=== PATIENT | female | born 1995 | race Caucasian/White ===

== ENCOUNTER 2017-05-27 00:06 | Emergency (ER) | payer OTHER ==
--- NOTE | ~2017-05-27 | CR229 ---
[facility] A Service of [facility] & [facility] RADIOLOGY TEXT RESULTS PATIENT: SLAVA NEGRON LOCATION: [facility] : 97 UNIT #: [id number] AGE: [address]: Marvin North MD SEX: F ORDER DR: [id number] [facility] [address] [place], [place] [address] [id number] E MR#: [id number] Acc #: [id number] NAME: SLAVA NEGRON : 1995 SEX: F STUDY DATE/TIME: 05/27/2017 1:05 UNIT: [facility] ROOM: STUDY DESCRIPTION: CR Shoulder Min 2 View Lt Attending Physician: Marvin North M.D. Ordering Physician: Marvin North M.D. Primary Care Physician: Primary Care Physician No MEDICAL IMAGING REPORT This report is preliminary unless electronic signature is present EXAM Left shoulder series INDICATION Left shoulder pain after a fall tonight. PROCEDURE 4 views of the left shoulder. COMPARISON None. FINDINGS No acute fracture or dislocation. IMPRESSION No acute findings. Dictated by... Regulo Flores M.D. THIS IS AN ELECTRONICALLY VERIFIED REPORT Regulo Flores M.D. at 05/27/2017 10:01 PM FRAN/lashon TD: 05/27/2017 02:44 JOB #: [id number] MEDICAL IMAGING REPORT Page 1 of 1 COPY
--- NOTE | ~2017-05-27 | CR72 ---
[facility] A Service of [facility] & [facility] RADIOLOGY TEXT RESULTS PATIENT: SLAVA NEGRON LOCATION: [facility] : 97 UNIT #: [id number] AGE: [address]: Marvin North MD SEX: F ORDER DR: [id number] [facility] [address] [place], [place] [address] [id number] E MR#: [id number] Acc #: [id number] NAME: SLAVA NEGRON : 1995 SEX: F STUDY DATE/TIME: 05/27/2017 1:04 UNIT: [facility] ROOM: STUDY DESCRIPTION: CR Chest Single View Portable Attending Physician: Marvin North M.D. Ordering Physician: Marvin North M.D. Primary Care Physician: Primary Care Physician No MEDICAL IMAGING REPORT This report is preliminary unless electronic signature is present EXAM Portable chest INDICATION Chest pain after a fall tonight. PROCEDURE Frontal view chest. COMPARISON None. FINDINGS Heart size within normal limits. Lungs are clear. No pleural fluid or pneumothorax. IMPRESSION No active process. Dictated by... Regulo Flores M.D. THIS IS AN ELECTRONICALLY VERIFIED REPORT Regulo Flores M.D. at 05/27/2017 10:01 PM FRAN/lashon TD: 05/27/2017 02:43 JOB #: [id number] MEDICAL IMAGING REPORT Page 1 of 1 COPY
--- NOTE | ~2017-05-27 | CT52 ---
[facility] A Service of [facility] RADIOLOGY TEXT RESULTS PATIENT: SLAVA NEGRON LOCATION: [facility] : 97 UNIT #: [id number] AGE: [address]: Marvin North MD SEX: F ORDER DR: [id number] [id number] [place], [place] [address] [id number] E MR#: [id number] Acc #: [id number] NAME: SLAVA NEGRON : 1995 SEX: F STUDY DATE/TIME: 05/27/2017 1:25 UNIT: [facility] ROOM: STUDY DESCRIPTION: CT Cervical Spine Wo Cont Attending Physician: Marvin North M.D. Ordering Physician: Marvin North M.D. Primary Care Physician: Primary Care Physician No MEDICAL IMAGING REPORT This report is preliminary unless electronic signature is present EXAM CT cervical spine without contrast INDICATION Neck pain after a fall tonight. PROCEDURE Unenhanced CT cervical spine. This CT exam was performed with one or more of the following radiation dose reduction techniques: automatic exposure control, adjustment of mA and/or kV according to patient size, and iterative reconstruction. COMPARISON None. FINDINGS Cervical bodies have normal height, alignment is preserved. The craniocervical junction and the dens are intact. No fracture. No critical central canal narrowing. IMPRESSION No acute findings. No acute fracture. Dictated by... Regulo Flores M.D. THIS IS AN ELECTRONICALLY VERIFIED REPORT Regulo Flores M.D. at 05/27/2017 10:01 PM EED/ljd [facility] A Service of [facility] RADIOLOGY TEXT RESULTS PATIENT: SLAVA NEGRON LOCATION: [facility] : 97 UNIT #: [id number] AGE: [address]: Marvin North MD SEX: F ORDER DR: TD: 05/27/2017 02:49 JOB #: [id number] MEDICAL IMAGING REPORT Page 1 of 1 COPY
--- NOTE | ~2017-05-27 | CT71 ---
[facility] A Service of [facility] RADIOLOGY TEXT RESULTS PATIENT: SLAVA NEGRON LOCATION: [facility] : 97 UNIT #: [id number] AGE: [address]: Marvin North MD SEX: F ORDER DR: [id number] [address] [address] [id number] E MR#: [id number] Acc #: [id number] NAME: SLAVA NEGRON : 1995 SEX: F STUDY DATE/TIME: 05/27/2017 1:18 UNIT: [facility] ROOM: STUDY DESCRIPTION: CT Head Wo Contrast Attending Physician: Marvin North M.D. Ordering Physician: Marvin North M.D. Primary Care Physician: Primary Care Physician No MEDICAL IMAGING REPORT This report is preliminary unless electronic signature is present EXAM CT head without contrast INDICATION Posterior head pain and laceration after a fall tonight. PROCEDURE Unenhanced CT of the head. This CT exam was performed with one or more of the following radiation dose reduction techniques: automatic exposure control, adjustment of mA and/or kV according to patient size, and iterative reconstruction. COMPARISON None. FINDINGS No acute hemorrhage, abnormal mass effect, extraaxial fluid collection or hydrocephalus. Left posterior scalp laceration and small hematoma. No underlying calvarial fracture. IMPRESSION 1. No acute intracranial findings. 2. Left posterior scalp hematoma and laceration with no underlying calvarial fracture. Dictated by... Regulo Flores M.D. [facility] A Service of [facility] RADIOLOGY TEXT RESULTS PATIENT: SLAVA NEGRON LOCATION: [facility] : 97 UNIT #: [id number] AGE: [address]: Marvin North MD SEX: F ORDER DR: THIS IS AN ELECTRONICALLY VERIFIED REPORT Regulo Flores M.D. at 05/27/2017 10:01 PM EED/lashon TD: 05/27/2017 02:47 JOB #: [id number] MEDICAL IMAGING REPORT Page 1 of 1 COPY
--- NOTE | ~2017-05-27 | EKG ---
PATIENT: SLAVA NEGRON UNIT #: [id number] Ventricular Rate: 73 BPM Atrial Rate: 73 BPM P-R Interval: 124 ms QRS Duration: 88 ms Q-T Interval: 398 ms QTC Calculation(Bezet): 438 ms P [place]: 27 degrees Calculated R [place]: 59 degrees Calculated T [place]: -2 degrees Diagnosis Line: Normal sinus rhythm Diagnosis Line: Abnormal QRS-T angle, consider primary T wave Diagnosis Line: abnormality Diagnosis Line: Abnormal ECG Diagnosis Line: No previous ECGs available Diagnosis Line: Confirmed by JUAN J YOUNG MD ([id number]) on 05/28/2017 Diagnosis Line: 5:38:18 AM INTERPRETING MD: HECTOR CHANDLER
--- NOTE | ~2017-05-27 | CR93 ---
[facility] A Service of [facility] & [facility] RADIOLOGY TEXT RESULTS PATIENT: SLAVA NEGRON LOCATION: [facility] : 97 UNIT #: [id number] AGE: [address]: Marvin North MD SEX: F ORDER DR: [id number] [facility] [address]. [place], [place] [address] [id number] E MR#: [id number] Acc #: [id number] NAME: SLAVA NEGRON : 1995 SEX: F STUDY DATE/TIME: 05/27/2017 1:07 UNIT: [facility] ROOM: STUDY DESCRIPTION: CR Elbow Min 3 Views Lt Attending Physician: Marvin North M.D. Ordering Physician: Marvin North M.D. Primary Care Physician: Primary Care Physician No MEDICAL IMAGING REPORT This report is preliminary unless electronic signature is present EXAM Left elbow series INDICATION Left elbow pain after a fall tonight. PROCEDURE 3 views of the left elbow. COMPARISON None. FINDINGS No acute fracture or dislocation. IMPRESSION No acute findings. Dictated by... Regulo Flores M.D. THIS IS AN ELECTRONICALLY VERIFIED REPORT Regulo Flores M.D. at 05/27/2017 10:01 PM FRAN/lashon TD: 05/27/2017 02:45 JOB #: [id number] MEDICAL IMAGING REPORT Page 1 of 1 COPY
[2017-05-27 01:36] LABS: BASOPHIL# 0.1 X10e3 (0-0.3); BASOPHIL% 0.5 % (0-2.5); EOSINOPHIL# 0.1 X10e3 (0-0.7); EOSINOPHIL% 1.1 % (0.0-7.0); HEMATOCRIT 45.7 % (35.0-45.0); HEMOGLOBIN 15.2 gm/dL (12.0-16.0); LYMPHOCYTE# 2.4 X10e3 (1.0-3.5); LYMPHOCYTE% 18.4 % (17.0-45.0); MEAN CELL VOLUME 93.6 FL (83-96); MEAN CORPUSCULAR HEMOGLOBIN 31.1 PG (28-34); MEAN CORPUSCULAR HGB CONC 33.2 g/dL (30-36); MEAN PLATELET VOLUME 10.5 FL (6.5-11.5); MONOCYTE# 0.9 X10e3 (0-1.0); MONOCYTE% 7.3 % (3.0-12.0); NEUTROPHIL# 9.4 X10e3 (1.5-7.1); NEUTROPHIL% 72.7 % (40-75); PLATELET COUNT 222 X10e3 (140-420); RED BLOOD COUNT 4.88 X10e (3.90-5.30); WHITE BLOOD COUNT 12.9 X10e3 (4.0-10.5)
[2017-05-27 01:37] LABS: DIFF IND NO
[2017-05-27 02:05] LABS: ALBUMIN SERUM 4.2 g/dL (3.5-5.0); ALKALINE PHOSPHATASE 52 U/L (32-92); ALT (SGPT) 15 U/L (8-29); AST (SGOT) 20 U/L (14-37); BILIRUBIN, DIRECT 0.2 mg/dL (0.0-0.2); BILIRUBIN,INDIRECT 0.7 mg/dL (0.0-0.9); BILIRUBIN,TOTAL 0.9 mg/dL (0.2-2.0); BLOOD UREA NITROGEN 9 mg/dL (9-23); CALCIUM SERUM 9.3 mg/dL (8.4-10.2); CARBON DIOXIDE 25 mmol/L (22-31); CHLORIDE 104 mmol/L (100-111); CREATININE SERUM 0.6 mg/dL (0.6-1.4); GLOM FILT RATE Estimated 132.1 mL/min (>60); GLUCOSE FASTING 102 mg/dL (70-110); POTASSIUM 3.7 mmol/L (3.5-5.1); PROTEIN TOTAL SERUM 7.2 g/dL (6.0-8.3); SODIUM 135 mmol/L (135-145)
[2017-05-27 02:12] LABS: ALCOHOL BLOOD <5 mg/dL (0)
[2017-05-27 03:02] LABS: INR 1.1; PARTIAL THROMBOPLASTIN TIME 27.5 SECONDS (23.5-31.3); PROTHROMBIN TIME (PATIENT) 11.5 SECONDS (10.0-11.7)
[2017-05-27 03:35] LABS: URINE SOURCE CLEAN CATCH
[2017-05-27 03:39] LABS: URINE APPEARANCE CLEAR; URINE BILIRUBIN NEG (NEG); URINE BLOOD NEG (NEG); URINE COLOR YELLOW; URINE GLUCOSE NEG (NEG); URINE KETONE TRACE (NEG); URINE LEUKOCYTE ESTERASE 1+ (NEG); URINE NITRATE NEG (NEG); URINE PROTEIN NEG (NEG); URINE SPECIFIC GRAVITY 1.013 (1.003-1.035)
[2017-05-27 03:42] LABS: CULTURE INDICATED? YES; URINE BACTERIA AUWI NEG (NEGATIVE); URINE SQUAMOUS EPITHELIAL CELL OCC /[HPF]
[2017-05-27 03:49] LABS: AMPHETAMINE POS (NEG); BARBITURATES NEG (NEG); BENZODIAZEPINES NEG (NEG); COCAINE NEG (NEG); MARIJUANA POS (NEG); OPIATES NEG (NEG); TRICYCLIC ANTIDEPRESSANTS NEG (NEG); U METHADONE NEG (NEG)
== END 2017-05-27 03:45 | disposition home or self-care (01) ==
LOC: CED 00:06
PROVIDERS: Emergency Medicine
DX: S01.91XA Laceration without foreign body of unspecified part of head, initial encounter (principal); S51.012A Laceration without foreign body of left elbow, initial encounter; F19.10 Other psychoactive substance abuse, uncomplicated; W01.0XXA Fall on same level from slipping, tripping and stumbling without subsequent striking against object, initial encounter; Y92.009 Unspecified place in unspecified non-institutional (private) residence as the place of occurrence of the external cause
CPT/HCPCS: 12001; 36415; 51702; 70450; 71010; 72125; 73030; 73080; 80048; 80076; 80307; 81003; 84703; 85025; 85610; 85730; 87086; 90715; 93005; 99284; G0480; J1885